=== PATIENT | male | born 1980 | race Caucasian/White ===

== ENCOUNTER 2022-04-11 04:23 | Day surgery (SDC) | payer BC, OTHER ==
[2022-04-06 13:34] VITALS: BMI 30.1
[2022-04-11] MEDS ORDERED: BUPIVACAINE HCL/PF 0.25% (2.5MG/ML) 10 ML VIAL ONE (11:24)
[2022-04-11] MEDS ORDERED: MIDAZOLAM HCL 2 MG/2 ML SINGLE DOSE VIAL ONE (11:38)
[2022-04-11] MEDS ORDERED: ROCURONIUM BROMIDE 50 MG/5 ML SYRINGE ONE (11:38)
[2022-04-11] MEDS ORDERED: LIDOCAINE HCL/PF 2% SDV 5ML VIAL ONE (11:38)
[2022-04-11] MEDS ORDERED: DEXAMETHASONE SOD PHOSPHATE 4 MG/1 ML VIAL ONE (11:38)
[2022-04-11] MEDS ORDERED: PROPOFOL 20 ML ONE ×2 (11:38→12:22)
[2022-04-11] MEDS ORDERED: ceFAZolin SODIUM 1 GM VIAL IVPB ONE (12:20)
[2022-04-11] MEDS ORDERED: ceFAZolin SODIUM 1 GM VIAL ONE (12:21)
[2022-04-11] MEDS ORDERED: KETOROLAC TROMETHAMINE 30 MG/1 ML VIAL ONE (14:00)
[2022-04-11] MEDS ORDERED: NEOSTIGMINE METHYLSULFATE 0.5 MG/ML - 10 ML MDV ONE (14:00)
[2022-04-11] MEDS ORDERED: GLYCOPYRROLATE 0.2 MG/1 ML VIAL ONE (14:00)
[2022-04-11] MEDS ORDERED: ONDANSETRON 4 MG/2 ML VIAL IVPUSH PRN (14:54)
[2022-04-11] MEDS ORDERED: oxyCODONE HCL 5 MG TABLET PO PRN (14:54)
[2022-04-11] MEDS ORDERED: LACTATED RINGERS SOLUTION 1,000 ML IV SCH (15:00)
[2022-04-11] MEDS ORDERED: oxyCODONE HCL 5 MG TABLET ONE ×2 (15:57→16:31)
[2022-04-11] MEDS: oxyCODONE HCL 5 MG TABLET PO PRN ×2 (16:00→16:35)
[2022-04-11 16:09] VITALS: RESP 18
[2022-04-11 16:45] VITALS: BP 131/81; PULSE 93; TEMP 98.4
== END 2022-04-11 17:00 | disposition home or self-care (01) ==
LOC: JASU-SURG 04:23
PROVIDERS: ATTEND Surgery
PROC: 0YU64JZ Supplement Left Inguinal Region with Synthetic Substitute, Percutaneous Endoscopic Approach (ICD-10-PCS; principal; 2022-04-11 12:00)
DX: K40.90 Unilateral inguinal hernia, without obstruction or gangrene, not specified as recurrent (principal)
CPT/HCPCS: 94760